=== PATIENT | female | born 1985 | race Caucasian/White ===

== ENCOUNTER 2023-10-23 11:58 | Emergency (ER) | payer OTHER, SELFPAY ==
[2023-10-23 12:00] VITALS: BP 135/78; PULSE 110; RESP 18; TEMP 36.8; O2SAT 97
--- NOTE | 2023-10-23 12:10 | EDS_ITS ---
HPI History of Present Illness HPI Narrative: Patient presents with pain in her right calf that began today. Patient states she was at work getting ready to unload a truck when she stepped back and felt a pop in her right calf. Patient states her pain is worse with weightbearing and with flexion of her knee. Patient states her pain is better with rest. Patient describes her pain as burning. Patient denies any paresthesias or weakness. Patient denies any other injuries. Chief Complaint: Lower Extremity Injury Informant: patient Occured/Mechanism Comment: Patient stepped back and felt a pop Onset/Context/Timing Onset: Today Context: Sudden Onset Timing: Continuous Quality of Pain: Burning Location: Right calf Worsened by: Weightbearing, flexion Relieved by: Rest Associated Symptoms Associated Symptoms: Negative for Parasthesia, Weakness or Loss of Funtion [facility] Medical History Factor V Leiden Home Medications ?Medication ?Instructions ?Recorded ?Last Taken ?Type enoxaparin 40 mg/0.4 mL 40 mg (0.4 mL) subcut DAILY@0600 10/23/13 Unknown Rx subcutaneous syringe ##30 ferrous sulfate 325 mg (65 mg 325 mg PO DAILY ##60 10/23/13 Unknown Rx iron) tablet (Iron (ferrous sulfate)) oxycodone-acetaminophen 5 mg-325 1 - 2 tab PO Q4H PRN PRN Moderate 10/23/13 Unknown Rx mg tablet Pain ##20 vits,calcium no.78-iron 1 tab PO DAILY ##30 10/23/13 Unknown Rx fumarate-folic acid 29 mg-1 mg tablet (Prenatabs FA) naproxen 500 mg tablet 500 mg PO BID PRN #20 tabs 10/23/23 Unknown Rx Allergy/AdvReac Type Severity Reaction Status Date / Time nicotine Allergy Rash Verified 10/23/23 11:59 Surgical History no surgical history no surgical history Social History Smoking Status: Current every day smoker tobacco type: cigarettes ROS ROS ED Constitutional Constitutional ED: Denies chills or fever(s) Eyes Eyes: Denies blurry vision or change in vision ENT ENT ED: Denies rhinorrhea or sore throat Cardiovascular Cardiovascular: Denies chest pain or palpitations Respiratory/Chest Respiratory/Chest: Denies cough or dyspnea Gastrointestinal Gastrointestinal: Denies nausea or vomiting Genitourinary Genitourinary ED: Denies dysuria or hematuria Musculoskeletal Musculoskeletal: Denies back pain or neck pain Integumentary Denies abscess or rash Neurologic Neurologic: Denies headache(s) or weakness Allergic/Immunologic Allergic/Immunologic ED: Denies mouth swelling or urticaria EXAM Physical Exam Const Vital Signs: 10/23/23 12:00 Temperature 98.3 F Temperature Source Temporal Pulse Rate 110 H Respiratory Rate 18 Blood Pressure 135/78 H Blood Pressure Mean 97 Pulse Ox 97 Oxygen Delivery Method Room Air Positive well nourished and well developed General Appearance ED: well developed and NAD HEENT Reports moist mucous membranes Neck full ROM and supple Extremity Extremity Narrative: There is tenderness over the right calf. There is no deformity noted. There is no bony crepitance or step-off. Newman test was negative. Achilles tendon is intact. Sensation was intact to light touch in the lower extremities bilaterally. Strength is 5/5 bilaterally in the lower extremities. Pedal pulses are equal bilaterally. Neuro oriented x3, CN's II-XII intact bilaterally, moves all extremities and no sensory deficits noted Sensorium / Orientation: alert Motor Exam: strength 5/5 throughout Psych mental status grossly normal MDM MDM MDM Narrative Medical decision making narrative: Differential diagnosis includes calf strain, and avulsion fracture. X-rays of the right tibia and fibula will be obtained to assess for avulsion fracture. Radiography Diagnostic Testing: Clinical Impression(s) from Imaging Studies Tibia/Fibula X-Ray 10/23/23 12:30 IMPRESSION: Normal x-ray examination of the tibia and fibula. Electronically Signed: Olegario Almodovar MD at 12:42 EDT , X-rays of the right tibia and fibula were obtained. There are 2 views. On my independent interpretation, there is no acute fracture. There is no foreign bodies noted. Radiologist also interpreted the x-rays and agrees. Treatment and Re-Evaluation Narrative: Smoking cessation was discussed. Patient was advised of her findings. Patient was instructed to ice and elevate the right lower leg. Patient was given a prescription for naproxen. Patient was instructed to follow-up with her primary care physician or the [facility] in 5 to 7 days. Patient understood and was agreeable with the plan. All questions were answered. Discharge Plan Triage Chief Complaint: Lower Extremity Injury ED Provider: Vlad Kirkpatrick Dx/Rx/DC Orders Clinical Impression: Strain of right calf muscle, Tobacco use disorder Instructions: ED Muscle Strain, Extremity Prescriptions: New naproxen 500 mg tablet 500 mg PO BID PRN Qty: 20 0RF Discontinued ibuprofen 600 MG tablet 600 mg PO Q6H PRN PRN (Reason: Mild/Moderate Pain) Qty: 30 1RF No Action oxycodone-acetaminophen 1 TABLET tablet 1 - 2 tab PO Q4H PRN PRN (Reason: Moderate Pain ) Qty: 20 0RF ferrous sulfate [Iron (ferrous sulfate)] 325 MG tablet 325 mg PO DAILY Qty: 60 1RF [id number] [Prenatabs FA] 1 TABLET tablet 1 tab PO DAILY Qty: 30 2RF enoxaparin 40 MG/0.4 ML syringe 40 mg subcut DAILY@0600 Qty: 30 1RF Primary Care Provider: Care Physician,No Primary Referrals: Care Physician,No Primary [Primary Care Provider] - [facility] [Non-Staff] - 3-5 Days Print Language: Afghan Disposition Disposition: Home, Self Care
--- NOTE | 2023-10-23 12:30 | RAD_ITS ---
STUDY: X-RAY - RIGHT TIBIA AND FIBULA REASON FOR EXAM: Female, 38 years old. Injury. Pain. TECHNIQUE: 2 view(s) of the tibia and fibula were obtained. COMPARISON: None. FINDINGS: Normal visualized tibia. Normal visualized fibula. The soft tissue structures are normal. RAD/Tibia & Fibula 2 Views IMPRESSION: Normal x-ray examination of the tibia and fibula. Electronically Signed: Olegario Almodovar MD at 12:42 EDT ,
[2023-10-23 13:07] VITALS: BP 132/75; PULSE 85; RESP 16; TEMP 36.8; O2SAT 98
== END 2023-10-23 13:10 | disposition home or self-care (01) ==
PROVIDERS: Emergency Provider Emergency Medicine; Visit Provider Emergency Medicine
DX: S86.111A Strain of other muscle(s) and tendon(s) of posterior muscle group at lower leg level, right leg, initial encounter (principal); F17.210 Nicotine dependence, cigarettes, uncomplicated; X58.XXXA Exposure to other specified factors, initial encounter
CPT/HCPCS: 73590; 99282

== ENCOUNTER 2025-03-04 20:21 | Emergency (ER) | payer OTHER, SELFPAY ==
[2025-03-04 20:22] VITALS: BP 124/68; PULSE 106; RESP 19; TEMP 36.7; O2SAT 98; BMI 41.4
[2025-03-04 21:12] VITALS: O2SAT 100
[2025-03-04 22:03] LABS: Carboxyhemoglobin Order 7.6
--- NOTE | 2025-03-04 22:05 | EX.ED.DYSGE1 ---
HPI History of Present Illness Chief Complaint: Poisoning Detail of Chief Complaint: Exposure to carbon oxide with headache Informant: patient Onset/Context/Timing Onset: Today and Hours Context: Sudden Onset Timing: Continuous Quality: Global head pain Location: Patient was using a nancy engine. She was in a somewhat enclosed area. Current Severity: Mild Maximum Severity: Moderate Worsened by: Improved after she left the area. Relieved by: Nothing Associated Symptoms Associated Symptoms: No other symptoms Narrative Narrative: Patient presents with global headache after using a internal combustion engine in an enclosed area. 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 She denies nausea vomiting. She denies paresthesia, anesthesia buttocks. She denies chest discomfort of any type. She denies nausea or vomiting. She is a smoker of half pack per day. Prior similar symptoms: No Recent Illness/Hospitalization: No PFSH [facility] Medical History Factor V Leiden Medical History no medical history Home Medications ?Medication ?Instructions ?Recorded ?Last Taken ?Type NK 03/04/25 Unknown History Allergy/AdvReac Type Severity Reaction Status Date / Time nicotine Allergy Rash Verified 03/04/25 20:21 Family History no significant family his Surgical History no surgical history Social History (Updated 03/05/25 @ 01:[address] Alexander Neville MD) household members: children Smoking Status: Heavy Smoker (>10/day) ROS ROS ED Constitutional Constitutional ED: Denies chills, fever(s), subjective or sweats Eyes Eyes: Denies blurry vision or change in vision Cardiovascular Cardiovascular: Denies chest pain or palpitations Respiratory/Chest Respiratory/Chest: Denies cough, dyspnea or dyspnea on exertion Gastrointestinal Gastrointestinal: Denies abdominal pain, nausea or vomiting Musculoskeletal Musculoskeletal: Denies arthralgias or myalgias Neurologic Neurologic: Reports headache(s); Denies paresthesias or weakness Hematologic/Lymphatic Hematologic/Lymphatic: Reports systems reviewed and no addt'l complaints, except as documented EXAM Physical Exam Const Vital Signs: 03/04/25 20:22 03/04/25 21:04 03/04/25 21:12 Temperature 98.1 F Temperature Source Oral Pulse Rate 106 H Respiratory Rate 19 H Respiratory Effort Normal Respiratory Pattern Normal Blood Pressure 124/68 H Blood Pressure Mean 86 Pulse Ox 98 100 Oxygen Delivery Method Room Air Non-Rebreather Oxygen Flow Rate (L/min) 15 03/04/25 22:12 Temperature 98.1 F Temperature Source Pulse Rate 72 Respiratory Rate 19 H Respiratory Effort Respiratory Pattern Blood Pressure 124/68 H Blood Pressure Mean 86 Pulse Ox 100 Oxygen Delivery Method Oxygen Flow Rate (L/min) Positive well nourished and well developed Constitutional Narrative: Blood pressure is elevated. She is tachycardic. She not hypoxic. General Appearance ED: well developed and NAD; Negative for cyanotic or diaphoretic HEENT Reports moist mucous membranes HEENT Narrative: Head is atraumatic and normocephalic. Ears are normal. Nares are patent. Posterior pharynx is normal. Eyes PERRL and EOMs intact bilaterally General Eye ED: Negative for pale conjunctiva or scleral icterus Neck no lymphadenopathy, supple and no JVD Resp normal respiratory effort and clear to auscultation bilaterally Cardio regular rate, regular rhythm, S1 normal heart sound, S2 normal heart sound and no murmurs GI normal to inspection, nondistended, normoactive bowel sounds, non-tender, non-distended and no masses Extremity normal to inspection General Extremety ED: Negative for edema or tenderness General Extremity: Negative for edema Neuro oriented x3 and CN's II-XII intact bilaterally Neuro Narrative: Moves all of her extremities. 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 She presents with headache. She is placed on 100 on nonrebreather and will obtain a carboxyhemoglobin level. She is a smoker. This was obtained to determine if she met criteria for hyperbaric treatment versus conservative treatment with oxygen alone. If the carboxyhemoglobin is elevated will obtain full workup. Lab Data Attestation: I reviewed the patient's lab results. Lab results narrative: CO level is approximately 7. This is not abnormal for a smoker. ABG Data ABG results: ABG 03/04/25 21:48 Carboxyhemoglobin 7.6 Discharge Plan Triage Chief Complaint: Poisoning ED Provider: Alexander Neville Dx/Rx/DC Orders Clinical Impression: Exposure to carbon monoxide, Cephalalgia, Elevated blood-pressure reading without diagnosis of hypertension, Sinus tachycardia seen on cardiac care nurse Instructions: Carbon Monoxide Poisoning, ED Hypertension, To Be Confirmed Prescriptions: No Action NK Primary Care Provider: Care Physician,No Primary Referrals: Care Physician,No Primary [Primary Care Provider, Medical] Activity Restrictions/Additional Instructions: Need to follow-up with your doctor to have your blood pressure checked in 1 to 2 weeks. It was elevated here in the department. Print Language: Kazakh Disposition Disposition: Home, Self Care Discharge Date/Time: 03/04/25 22:31
[2025-03-04 22:12] VITALS: BP 124/68; PULSE 72; RESP 19; TEMP 36.7; O2SAT 100
[2025-03-08 23:29] LABS: Carboxyhemoglobin Frac (CO) 7.6 % (0.0-1.5)
== END 2025-03-04 22:31 | disposition home or self-care (01) ==
PROVIDERS: Emergency Provider Emergency Medicine; Visit Provider Emergency Medicine
DX: T59.7X1A Toxic effect of carbon dioxide, accidental (unintentional), initial encounter (principal); R00.0 Tachycardia, unspecified; R51.9 Headache, unspecified; R03.0 Elevated blood-pressure reading, without diagnosis of hypertension; F17.200 Nicotine dependence, unspecified, uncomplicated
CPT/HCPCS: 82375; 99284; A4216